=== PATIENT | male | born 1980 | race Two or more races ===

== ENCOUNTER 2016-09-02 11:05 | Emergency (ER) | payer MEDICAID ==
[2016-09-02 12:47] VITALS: BP 120/79
== END 2016-09-02 12:47 | disposition home or self-care (01) ==
LOC: ED 11:05
DX: T15.11XA Foreign body in conjunctival sac, right eye, initial encounter (principal); X58.XXXA Exposure to other specified factors, initial encounter; Y93.89 Activity, other specified; Y99.8 Other external cause status; Y92.89 Other specified places as the place of occurrence of the external cause